=== PATIENT | female | born 1995 | race American Indian/Alaskan Native ===

== ENCOUNTER 2018-06-26 17:58 | Emergency (ER) | payer MEDICAID ==
[2018-06-26 18:27] VITALS: RESP 18; TEMP 99.6
--- NOTE | 2018-06-26 18:56 | ED PDOC ---
Arrival/HPI - General Chief Complaint: Abnormal Skin Integrity Time Seen by Provider: 06/26/18 18:53 Historian: Patient - History of Present Illness Narrative History of Present Illness (Text): 06/26/18 18:53 22 y/o female, no significant pmh, nkda, last tetanus under 4 years ago, c/o lt. axillary abscess x 2 days. Pt. stated that she has lt. axillary lesion pain x 2 days, been growing, no difficulty moving the lt. upper extremity, no numbness or tingling, no fever or chills, no dizziness, eating and drinking well, no other medical or psychological complaints. Past Medical History - Provider Review Nursing Documentation Reviewed: Yes - Psychiatric Hx Substance Use: No Family/Social History - Physician Review Nursing Documentation Reviewed: Yes Family/Social History: Unknown Family HX Smoking Status: Never Smoked Hx Alcohol Use: Yes Frequency of alcohol use: Socially Hx Substance Use: No Allergies/Home Meds Allergies/Adverse Reactions: Allergies No Known Allergies Allergy (Verified 06/26/18 18:27) Review of Systems - Review of Systems Constitutional: absent: Fatigue, Fevers Eyes: absent: Vision Changes ENT: absent: Hearing Changes Respiratory: absent: SOB, Cough Cardiovascular: absent: Chest Pain Gastrointestinal: absent: Abdominal Pain, Nausea, Vomiting Skin: Abscess. absent: Rash, Pruritis, Skin Lesions, Laceration, Ulcer, Cellulitis Neurological: absent: Headache, Dizziness Psychiatric: absent: Anxiety, Depression, Suicidal Ideation Physical Exam Vital Signs Reviewed: Yes Vital Signs Temp Pulse Resp BP Pulse Ox 06/26/18 18:25 99.6 F 92 H 18 105/70 100 Temperature: Afebrile Blood Pressure: Normal Pulse: Regular Respiratory Rate: Normal Appearance: Positive for: Well-Appearing, Non-Toxic, Comfortable Pain Distress: Mild Mental Status: Positive for: Alert and Oriented X 3 - Systems Exam Head: Present: Atraumatic, Normocephalic Pupils: Present: PERRL Extroacular Muscles: Present: EOMI Conjunctiva: Present: Normal Mouth: Present: Moist Mucous Membranes Neck: Present: Normal Range of Motion Respiratory/Chest: Present: Clear to Auscultation, Good Air Exchange. No: Respiratory Distress, Accessory Muscle Use Cardiovascular: Present: Regular Rate and Rhythm, Normal S1, S2. No: Murmurs Abdomen: No: Tenderness, Distention, Peritoneal Signs Back: Present: Normal Inspection Upper Extremity: Present: Normal Inspection. No: Cyanosis, Edema Lower Extremity: Present: Normal Inspection. No: Edema Neurological: Present: GCS=15, CN II-XII Intact, Speech Normal Skin: Present: Warm, Dry, Rashes (Lt. axillary region visible approx. 3.5cm diameter fluctuant abscess with no cellulitis or ulcer, FROM without limitation, sensation intact, motor 5/5, no abrasion/laceration, no focal neurological deficits. ), Normal Color Psychiatric: Present: Alert, Oriented x 3, Normal Insight, Normal Concentration Medical Decision Making ED Course and Treatment: 06/26/18 18:57 -Clindamycin/tylenol/ 06/26/18 18:59 Procedure: Incision & Drainage Performed by the emergency provider Indication: Abscess Location: rt. axillary Preparation: The area was prepped and draped in the usual sterile fashion and was cleansed with normal saline 1000cc, clean with betadine, local infiltration of Lidocaine 1% withput Epi 0.5cc was used for anesthesia. Procedure: The most fluctuant portion of the abscess was incised with a #11 scalpel. Approximately 1cm laceration with 3 mL of purulant abscess was obtained. The abscess was packed 1/4" packing. A dressing was applied by me with bacitracin/gauze dressing. Post-Procedure: On exam the abscess is notably less fluctuant. The patient tolerated the procedure well, and there were no complications. 06/26/18 20:15 -Urine hcg is negative, pt. feels better and request more pain medication prior to discharge as she will be taking the cab home. -Oxycodone 5mg po once stat ordered. -Discharge home with clindamycin, motrin, keep the dressing dry and clean, return to the ER for wound check and packing change in 2 days, follow up with your own pmd and surgeon within 3 days, return to the ER for any new or worsening signs or symptoms. - PA / ACOUSTICAL ENGINEER / Resident Statement MD/DO has reviewed & agrees with the documentation as recorded. Disposition/Present on Arrival - Present on Arrival Any Indicators Present on Arrival: No History of DVT/PE: No History of Uncontrolled Diabetes: No Urinary Catheter: No History of Decub. Ulcer: No History Surgical Site Infection Following: None - Disposition Have Diagnosis and Disposition been Completed?: Yes Diagnosis: Axillary abscess Disposition: HOME/ ROUTINE Disposition Time: 20:18 Patient Plan: Discharge Patient Problems: Current Active Problems Problem Status Onset Axillary abscess Acute Condition: IMPROVED Additional Instructions: -Discharge home with clindamycin, motrin, keep the dressing dry and clean, re turn to the ER for wound check and packing change in 2 days, follow up with your own pmd and surgeon within 3 days, return to the ER for any new or worsening signs or symptoms. Prescriptions: Clindamycin [Cleocin] 300 mg PO TID #21 cap Ibuprofen [Motrin] 600 mg PO QID PRN #30 tab PRN Reason: Other Referrals: Mariann Moreno MD [Primary Care Provider] - Follow up with primary Viviane Mendez MD [Staff Provider] - Follow up with primary Forms: [facility] (Mal[place]ian), WORK NOTE
[2018-06-26] MEDS ORDERED: oxyCODONE 5 mg Immediate Release Tab PO STA (20:15)
[2018-06-27 01:58] VITALS: BP 110/64; PULSE 84; O2SAT 99
== END 2018-06-26 20:30 | disposition home or self-care (01) ==
LOC: MERGE 17:58 → ED 17:58
DX: L02.412 Cutaneous abscess of left axilla (principal)

== ENCOUNTER 2018-06-28 12:32 | Emergency (ER) | payer MEDICAID ==
[2018-06-28 13:32] VITALS: BP 112/73; PULSE 101; RESP 18; TEMP 98.2; BMI 25.9
--- NOTE | 2018-06-28 14:19 | ED PDOC ---
Arrival/HPI - General Chief Complaint: Abnormal Skin Integrity Time Seen by Provider: 06/28/18 13:14 Historian: Patient - History of Present Illness Narrative History of Present Illness (Text): 06/28/18 13:14 22 year old female whose past medical history includes hidradenitis suppurativa, who presents to the Emergency department for reevaluation of wound she had packed in left axilla. Patient had a boil rupture approximately a week ago and had it packed with iodoform gauze, and was told to follow up at the emergency department for reevaluation and removal of packing. She reports purulent discharge from the boil for a couple of hours today. Patient denies fevers, chills, cough, shortness of breath, chest pain, dyspnea on exertion, abdominal pain, nausea, vomiting, diarrhea, back pain, neck pain, headache, dizziness, or any other complaint. Time/Duration: 1 week Symptom Onset: Gradual Symptom Course: Improving Context: Home Past Medical History - Provider Review Nursing Documentation Reviewed: Yes - Infectious Disease Hx of Infectious Diseases: None - Reproductive Menopause: No - Psychiatric Hx Substance Use: No - Anesthesia Hx Anesthesia: No Family/Social History - Physician Review Nursing Documentation Reviewed: Yes Family/Social History: No Known Family HX Smoking Status: Light Smoker < 10 Cigarettes Daily Hx Alcohol Use: Yes Hx Substance Use: No Allergies/Home Meds Allergies/Adverse Reactions: Allergies No Known Allergies Allergy (Unverified 06/28/18 08:25) Home Medications: Home Meds Medication Instructions Recorded Confirmed No Known Home Med 09/09/15 09/09/15 Review of Systems - Physician Review All systems were reviewed & negative as marked: Yes - Review of Systems Constitutional: absent: Fevers, Night Sweats Respiratory: absent: SOB, Cough Cardiovascular: absent: Chest Pain, CHEN, Syncope Gastrointestinal: absent: Abdominal Pain, Diarrhea, Nausea, Vomiting Musculoskeletal: absent: Back Pain, Neck Pain Skin: Other (purulent discharge within left axilla) Neurological: absent: Headache, Dizziness Physical Exam Vital Signs Reviewed: Yes Vital Signs Temp Pulse Resp BP Pulse Ox 06/28/18 13:30 98.2 F 101 H 18 112/73 100 Temperature: Afebrile Blood Pressure: Normal Pulse: Tachycardic Respiratory Rate: Normal Appearance: Positive for: Well-Appearing Mental Status: Positive for: Alert and Oriented X 3 - Systems Exam Head: Present: Atraumatic, Normocephalic Pupils: Present: PERRL Extroacular Muscles: Present: EOMI Conjunctiva: Present: Normal Mouth: Present: Moist Mucous Membranes Neck: Present: Normal Range of Motion Respiratory/Chest: No: Respiratory Distress, Accessory Muscle Use Back: Present: Normal Inspection Upper Extremity: Present: Normal Inspection. No: Cyanosis, Edema Lower Extremity: Present: Normal Inspection. No: Edema Neurological: Present: GCS=15, CN II-XII Intact, Speech Normal Skin: Present: Warm, Dry, Normal Color, Erythematous (erythema noted to left axilla), Other (large boil tender to palpation within left axilla. Purulent discharge noted once gauze removed with malodorous scent.). No: Rashes Psychiatric: Present: Alert, Oriented x 3, Normal Insight, Normal Concentration Medical Decision Making ED Course and Treatment: 06/28/18 13:14 Impression: 22 year old female with history of hidradenitis suppurativa who presents to the Emergency department for reevaluation of wound and repacking. Plan: -- Wound repacking -- Reassess and disposition Prior Visits: Notes and results from previous visits were reviewed. Progress Notes: 06/28/18 14:12 Wound was repacked with iodoform gauze and patient advised to follow up with PMD for wound management. Patient expresses understanding and is stable for discharg e. - Scribe Statement The provider has reviewed the documentation as recorded by the Edward Crews Provider Scribe Attestation: All medical record entries made by the Maria Luzibpablito were at my direction and personally dictated by me. I have reviewed the chart and agree that the record accurately reflects my personal performance of the history, physical exam, medical decision making, and the department course for this patient. I have also personally directed, reviewed, and agree with the discharge instructions and disposition. Disposition/Present on Arrival - Present on Arrival Any Indicators Present on Arrival: No History of DVT/PE: No History of Uncontrolled Diabetes: No Urinary Catheter: No History of Decub. Ulcer: No History Surgical Site Infection Following: None - Disposition Have Diagnosis and Disposition been Completed?: Yes Diagnosis: Encounter for wound care Disposition: HOME/ ROUTINE Disposition Time: 14:18 Patient Plan: Discharge Condition: IMPROVED Discharge Instructions (ExitCare): Hidradenitis SuppurativaNas (DC) Referrals: Mariann Moreno MD [Primary Care Provider] - Follow up with primary Forms: [employer] (Ind[place]ian)
[2018-06-28 14:35] VITALS: O2SAT 99
== END 2018-06-28 14:37 | disposition home or self-care (01) ==
LOC: ED 12:32
DX: Z48.00 Encounter for change or removal of nonsurgical wound dressing (principal); F17.210 Nicotine dependence, cigarettes, uncomplicated